=== PATIENT | female | born 2000 | race Caucasian/White ===

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

== ENCOUNTER 2021-01-31 12:08 | Emergency (ER) | payer OTHER, SELFPAY | END 2021-01-31 13:05 | disposition left against medical advice (07) | PROVIDERS: Emergency Provider Emergency Medicine Emergency Medical Services; PCP Internal Medicine | DX: J02.9 Acute pharyngitis, unspecified (principal) ==

== ENCOUNTER 2021-02-04 04:20 | Emergency (ER) | payer OTHER, SELFPAY ==
[2021-02-04 04:28] VITALS: BP 138/89; PULSE 79; RESP 18; TEMP 36.6; O2SAT 99; BMI 37.7
--- NOTE | 2021-02-04 05:05 | ED.GENADULT ---
HPI - General Adult General Chief complaint: Dyspnea Stated complaint: diff breathing Time Seen by Provider: 02/04/21 05:04 Source: patient Mode of arrival: ambulatory Limitations: no limitations History of Present Illness HPI narrative: 20-year-old female came in for evaluation of difficulty breathing. Patient woke up from sleep with difficulty breathing/ sore throat, patient been having sore throat and left ear pain for the last 3 days, in the emergency department the shortness of breath has resolved, patient has no recent history of traveling, no lower extremity swelling or edema, no chest pain, no history of DVT or PE. No history of sick contact. Related Data Previous Rx's Medication Instructions Recorded doxycycline hyclate 100 mg capsule 100 mg PO BID 10 Days #20 cap 06/18/20 amoxicillin 500 mg tablet 500 mg PO BID #14 tab 02/04/21 Allergies Allergy/AdvReac Type Severity Reaction Status Date / Time fish derived [fish] Allergy Shortness Verified 06/18/20 19:08 of Breath Review of Systems Review of Systems: all other systems are reviewed and are negative Constitutional: Reports as per HPI and Reports no additional constitutional complaints Eyes: Reports as per HPI and Reports no additional eye complaints Reports system reviewed and no additional complaints, except as documented Cardiovascular: Reports as per HPI and Reports no additional cardiovascular complaints Respiratory: Reports as per HPI and Reports no additional respiratory complaints Gastrointestinal: Reports as per HPI and Reports no additional gastrointestinal complaints Genitourinary: Reports no additional female genitourinary complaints Musculoskeletal: Reports no additional musculoskeletal complaints Skin/Breast: Reports system reviewed and no additional complaints, except as docu Psychiatric: Reports no additional psychiatric complaints Endocrine: Reports no additional endocrine complaints Hematologic/Lymphatic: Reports no additional hematologic/lymphatic complaints Allergic/Immunologic: Reports no additional allergic/immunologic complaints Reports system reviewed and no additional complaints, except as documented and Reports Abnormal speech present [facility] Past Medical History Medical History No known health problems Social History Social History Alcohol intake: never Advance Directives: No Advance Directives Information Provided: No Physical Exam Vital Signs: Vital Signs: Last Vital Signs Temp 97.9 F 02/04/21 04:28 Pulse 79 02/04/21 04:28 Resp 18 02/04/21 04:28 BP 138/89 11/23/21 04:28 Pulse Ox 99 02/04/21 04:28 Body Mass Index 37.7 vital signs have been reviewed as appeared to be correct. Blood pressure normal. Heart rate normal. Respiration rate normal. Temperature normal. Oxygen saturation normal. Appearance: Alert. Oriented X3. No acute distress. Head: Normal external exam. Normocephalic. Atraumatic. No Perera signs noted. No raccoon eyes noted Eyes: PERRLA. EOMI. Conjunctiva and sclera normal. Eyelids normal. ENT: left TM erythema. pharyngeal erythema with no exudate.. Uvula midline. Moist mucous membranes. No trismus noted. No drooling noted. No muffled voice noted. Neck: Normal inspection. Neck supple. FROM. No adenopathy. Thyroid Normal. No meningeal signs. No neck mass noted. CVS: Normal heart rate and rhythm. Heart sound normal. No murmurs noted. Pulses normal throughout. Respiratory: No respiratory distress. Painless inspiration. Breath sounds normal. No wheezes/rales/rhonchi noted. Chest nontender. No accessory muscle usage noted or decreased air movement noted. Abdomen: Soft and nontender. Bowel sounds normal in all 4 quadrants. No distention noted. No organomegaly noted. No visible injury noted. Back: No CVA tenderness. Full range of motion noted. Skin: Skin warm and dry. Normal skin color. Normal skin turgor. No rashes/lesions/lacerations noted. Extremities: No lower extremity edema. Extremities exhibit normal range of motion. Extremities nontender. Neuro: Oriented X 3. Cranial nerve exam: II-XII are grossly intact No motor deficit. No sensory deficit. Reflexes normal. Course Course Course Narrative: assessment and plan. 20-year-old female came in for left ear pain will start the patient on amoxicillin. Patient woke up from sleep with difficulty breathing and sore throat, in the ED patient has no difficulty breathing with normal vital signs, and patient has low risk for PE or DVT. Medical Decision Making Lab Data Lab results reviewed: Yes I reviewed the patient's lab results. Labs: Lab Results 02/04/21 02/04/21 Range/Units 04:54 04:54 COVID-19 (RICHADR) Negative (Negative) COVID-19 Clin Com See Note S. pyogenes GrpA SANDY Negative (Negative) Discharge Plan Discharge Clinical Impression: Otitis media Qualifiers: Chronicity: acute Laterality: left Patient Disposition: Home, Self-Care Instructions: Ear Infection (ED) Prescriptions: New amoxicillin 500 mg tablet 500 mg PO BID Qty: 14 RF: 0 No Action doxycycline hyclate 100 mg capsule 100 mg PO BID 10 Days Qty: 20 RF: 0 Referrals: Daivd Henry MD [Primary Care Provider] - 2 days
[2021-02-04 05:11] LABS: Strep A Nucleic Acid Negative (Negative)
[2021-02-04 05:16] LABS: COVID-19 Test Negative (Negative); IDNOW Serial# 9DD0AD1C
[2021-02-04] MEDS: Amoxicillin 500 MG CAPSULE PO (05:18)
[2021-02-04 06:00] VITALS: BP 123/60; PULSE 81; RESP 16; TEMP 37.1; O2SAT 98
== END 2021-02-04 06:09 | disposition home or self-care (01) ==
PROVIDERS: Emergency Provider Emergency Medicine; PCP Internal Medicine
DX: H66.92 Otitis media, unspecified, left ear (principal); R06.00 Dyspnea, unspecified; Z79.899 Other long term (current) drug therapy; Z20.822 Contact with and (suspected) exposure to COVID-19
CPT/HCPCS: 36415; 87635; 87651; 99283; 99284

== ENCOUNTER 2021-07-26 01:40 | Emergency (ER) | payer OTHER, SELFPAY ==
[2021-07-26 02:08] VITALS: BP 121/71; PULSE 106; RESP 20; TEMP 38.4; O2SAT 96; BMI 38.0
[2021-07-26] MEDS: Acetaminophen 325 MG TABLET 650 MG PO (02:24)
[2021-07-26 02:49] LABS: COVID-19 Test Negative (Negative); IDNOW Serial# 08D9AD1C; Influenza A Negative (Negative); Influenza B2 Negative (Negative)
== END 2021-07-26 06:08 | disposition left against medical advice (07) ==
PROVIDERS: Emergency Provider Emergency Medicine
DX: R05.9 Cough, unspecified (principal); R09.89 Other specified symptoms and signs involving the circulatory and respiratory systems; Z20.822 Contact with and (suspected) exposure to COVID-19
CPT/HCPCS: 87502; 87635; 99281; 99283

== ENCOUNTER 2022-12-03 09:00 | Emergency (ER) | payer OTHER, SELFPAY ==
[2022-12-03 09:04] VITALS: BP 150/92; PULSE 75; RESP 18; TEMP 36.6; O2SAT 98; BMI 40.3
--- NOTE | 2022-12-03 09:33 | ED_ITS ---
HPI - Back Pain/Injury General Chief Complaint: Back Pain/Injury Stated Complaint: pulled something in back Time Seen by Provider: 12/03/22 09:29 Source: patient Mode of arrival: ambulatory Limitations: no limitations History of Present Illness HPI Narrative: 22 yo female with history of obesity presents to the ER for evaluation of right lower back pain that started yesterday after doing some heavy lifting. She s tates the pain came on more severe when she went to go sit down in a low car. She felt a twinge in her right lower back and it has been stiff and sore since. It is worse with any movement or spinal rotation. Pain radiates to the right buttock. No leg weakness, numbness, tingling or issues with urination or moving her bowels. Minimal relief w/ tylenol. She reports her menstrual cycle is 10 days late and she wants to make sure she is not prior to taking any more medications for the pain. MD elicited complaint: back pain and back injury Onset (ago): day(s) (1) Timing: constant Severity: moderate Similar Symptoms Previously: No Quality: aching and spasming Location: right lower back Radiation: buttocks Exacerbating factors: movement Relieving factors: none Related Data Previous Rx's Medication Instructions Recorded doxycycline hyclate 100 mg capsule 100 mg PO BID stye 10 days #20 caps 06/18/20 amoxicillin 500 mg tablet 500 mg PO BID #14 tabs 02/04/21 cyclobenzaprine 10 mg tablet 10 mg PO TID PRN muscle spasm #10 12/03/22 tabs ibuprofen 600 mg tablet 600 mg PO Q8H PRN pain #10 tabs 12/03/22 Allergies Allergy/AdvReac Type Severity Reaction Status Date / Time bee pollen [bee stings] Allergy Hives Verified 12/03/22 09:04 fish derived [fish] Allergy Shortness Verified 12/03/22 09:04 of Breath Review of Systems Review of Systems: Yes all other systems are reviewed and are negative PMFSH Past Medical History Medical History No known health problems Social History Social History Alcohol intake: never Advance Directives: No Physical Exam Vital Signs: Vital Signs: Last Vital Signs Temp 98 F 12/03/22 09:04 Pulse 75 12/03/22 09:04 Resp 18 12/03/22 09:04 BP 150/92 H 12/03/22 09:04 Pulse Ox 98 12/03/22 09:04 O2 Del Method Room Air 12/03/22 09:04 BMI result Body Mass Index 40.3 Appearance: Alert. Oriented X3. No acute distress. HEENT: normal external inspection. Neck: Normal inspection. Neck supple. CVS: Normal heart rate and rhythm. Pulses normal. Respiratory: No respiratory distress. Breath sounds normal. Back: normal inspection. soft tissue tenderness of the right middle-low lumbar area and SI joint. pain with rotation to the left. limited spinal flexion due to pain. Skin: Skin warm and dry. Normal skin color. Normal skin turgor. No rashes. Extremities: No lower extremity edema. No joint swelling. Neuro/psych: Oriented X 3. Non-focal. Normal speech and cognition. Steady gait Medical Decision Making Medical Decision Making [facility] Narrative: 22 yo female presenting with right lower back pain after heavy lifting yesterday. No red flag symptoms of LBP. no urinary symptoms. late for her menses but Upreg negative. exam and clinical presentation most c/w muscle strain and spasm of the lumbar area will start nsaid and short course of muscle relaxer. lower back exercises discus sed. stable for d/c home. Differential Diagnosis Differential Diagnoses: The differential diagnosis associated with the presentation includes Inflammatory disorders, malignancy, trauma, osteoporosis, nerve root compression, radiculopathy, plexopathy, degenerative disc disease, disc herniation, spinal stenosis, sacroiliac joint dysfunction, facet joint injury, and less likely infection?like abscess or diskitis Lab Data [facility] Lab Attestation statement: I reviewed the patient's lab results. Labs: Lab Results 12/03/22 Range/Units 09:47 Urine Color Yellow Urine Appearance Clear Urine pH 5.5 (5.0-9.0) Ur Specific [place] 1.025 (1.005-1.025) Urine Protein Trace (Neg-Trace) mg/dL Urine Glucose (UA) Negative (Negative) mg/dL Urine Ketones Negative (Negative) mg/dL Urine Blood Moderate (2+) H (Negative) Urine Nitrite Negative (Negative) Ur Leukocyte Esterase Negative (Negative) Urine RBC 3-5 H (0-2) /HPF Urine WBC 0-5 (0-5) /HPF Ur Squamous Epith Cells 6-10 (0-2) /HPF Urine Bacteria 2+ (None Seen) Hyaline Casts 0-2 (0-2) /LPF Urine Test NEGATIVE (NEGATIVE) Tests considered The following testing was considered but not selected: considered lumbar spine x-ray but no trauma or point tenderness Prescription Management I considered prescription management with: Pain Medication Chronic Conditions Patient?s care impacted by: Other (obesity) Critical Care Time Critical Care Time Critical Care Time: No Discharge Plan Discharge Clinical Impression: Strain of lumbar region Qualifiers: Encounter type: initial encounter Qualified Code(s): S39.012A - Strain of muscle, fascia and tendon of lower back, initial encounter Patient Disposition: Home, Self-Care Instructions: Low Back Strain (ED), Lower Back Exercises (ED) Additional Instructions: Your urine test was negative for infection and . Your pain is most likely due to muscle strain and spasm. No bending, lifting or twisting. Use ice several times per day for 20 minutes at a time for the next 48 hours and then change to heat. Take medications as prescribed to help with pain and discomfort. Follow up with your Primary Care Doctor this week. If your pain worsens, if you develop new numbness, tingling, weakness, loss of function or incontinence call 911 or come back to the ER right away for evaluation. Prescriptions: New cyclobenzaprine 10 mg tablet 10 mg PO TID PRN (Reason: muscle spasm) Qty: 10 0RF ibuprofen 600 mg tablet 600 mg PO Q8H PRN (Reason: pain) Qty: 10 0RF No Action doxycycline hyclate 100 mg capsule 100 mg PO BID 10 Days Qty: 20 0RF amoxicillin 500 mg tablet 500 mg PO BID Qty: 14 0RF Stand Alone Forms: Work/School Release
[2022-12-03 09:55] LABS: Appearance Urine Clear; Color Urine Yellow; Glucose Urine UA Negative (Negative); Leukocyte Esterase Urine Negative (Negative); Nitrite Urine Negative (Negative); PH 5.5 (5.0-9.0); Specific Gravity - Urine 1.025 (1.005-1.025); UMIC TRIGGER UACC YES; Urine Blood Moderate (2+) (Negative); Urine Ketones Negative (Negative); Urine Protein Trace mg/dL (Neg-Trace)
[2022-12-03 09:56] LABS: UPreg QC Valid YES; Urine Pregnancy NEGATIVE (NEGATIVE)
[2022-12-03 10:09] LABS: Bacteria Urine 2+ (None Seen); Hyaline Casts Urine 0-2 /LPF (0-2); WBC Urine 0-5 /HPF (0-5)
== END 2022-12-03 10:32 | disposition home or self-care (01) ==
PROVIDERS: Physician Assistant; Emergency Provider Emergency Medicine
DX: S39.012A Strain of muscle, fascia and tendon of lower back, initial encounter (principal); X50.0XXA Overexertion from strenuous movement or load, initial encounter; Y93.9 Activity, unspecified; Y92.9 Unspecified place or not applicable; Y99.9 Unspecified external cause status
CPT/HCPCS: 81001; 81025; 99282; 99283

== ENCOUNTER 2023-01-11 02:16 | Emergency (ER) | payer OTHER, SELFPAY ==
[2023-01-11 02:26] VITALS: BP 139/65; PULSE 81; RESP 20; TEMP 36.3; O2SAT 98; BMI 39.5
--- NOTE | 2023-01-11 02:41 | ED.DENTAL ---
HPI - Dental/Oral General Chief complaint: Dental/Oral Stated complaint: oral pain Time Seen by Provider: 01/11/23 02:38 Source: patient Mode of arrival: ambulatory Limitations: no limitations History of Present Illness HPI Narrative: right jaw pain and cheek pain, patient noticed a bump in her mouth that is painful Onset (ago): hour(s) Duration: constant Severity: mild Related Data Previous Rx's Medication Instructions Recorded doxycycline hyclate 100 mg capsule 100 mg PO BID stye 10 days #20 caps 06/18/20 amoxicillin 500 mg tablet 500 mg PO BID #14 tabs 02/04/21 cyclobenzaprine 10 mg tablet 10 mg PO TID PRN muscle spasm #10 12/03/22 tabs ibuprofen 600 mg tablet 600 mg PO Q8H PRN pain #10 tabs 12/03/22 ibuprofen 600 mg tablet 600 mg PO Q6H PRN pain #30 tabs 01/11/23 Allergies Allergy/AdvReac Type Severity Reaction Status Date / Time bee pollen [bee stings] Allergy Hives Verified 12/03/22 09:04 fish derived [fish] Allergy Shortness Verified 12/03/22 09:04 of Breath Review of Systems Review of Systems: Yes all other systems are reviewed and are negative Neurologic: Denies Sensory deficit (Neuro) PMFSH Past Medical History Medical History No known health problems Social History Social History Alcohol intake: never Physical Exam Vital Signs: Vital Signs: Last Vital Signs Temp 97.3 F 01/11/23 02:26 Pulse 81 01/11/23 02:26 Resp 20 01/11/23 02:26 BP 139/65 01/11/23 02:26 Pulse Ox 98 01/11/23 02:26 O2 Del Method Room Air 01/11/23 02:26 BMI result Body Mass Index 39.5 Const: General: healthy appearing Nutritional Appearance: average body habitus Orientation/consciousness: oriented to person and patient oriented x3 Limitations: no limitations HEENT: Other: right parotid tenderness, pain to stensons duct, no pus coming out Head: Yes normal to inspection Ears: external ears normal General nose exam: Normal external nose present Throat: Yes posterior oropharynx normal Eyes: General: appearance normal, both eyes and all related structures Neck: Other: supple Neck: Yes normal visual inspection Chest: Chest palpation & inspection: normal inspection of the chest Resp: Auscultation: clear to auscultation bilaterally Cardio: Jugular venous distension: no JVD Rate: regular rate Rhythm: regular rhythm Heart sounds: S1 normal heart sound present and S2 normal heart sound present GI: Inspection: Yes normal to inspection Palpation (GI): Soft to palpation, nontender and No hepatosplenomegaly present Auscultation: normal bowel sounds : General: Yes no CVA tenderness Back/Spine/Pelvis: Back: no CVA tenderness Skin: General skin exam: no rashes or lesions noted Neuro: General: oriented to person and patient oriented x3 Cranial nerves: Yes CN's II-XII intact bilaterally Motor exam (neuro): 5/5 motor strength present throughout Sensory Exam: No Sensory deficit (Neuro) Extrem: General: Yes normal to inspection Psych: Appearance: grossly normal Course Reevaluation(s) Reevaluation #1: Patient with parotiditis with pain to stensons duct will dc home on NSAIDS and butterscotch candies Time: 02:44 Medical Decision Making Differential Diagnosis Differential Diagnoses: The differential diagnosis associated with the presentation includes (parotiditis, pharyngitis, dental infection, apthous ulcers) Tests considered The following testing was considered but not selected: rapid strep considered but patient with no exudates in throat Prescription Management I considered prescription management with: Antibiotic (patient with viral parotid inflammation no need for antibiotics at this time) Discharge Plan Discharge Clinical Impression: Acute parotitis Patient Disposition: Home, Self-Care Additional Instructions: take motrin as directed, drink plenty of fluids, suck on butterscotch candies to stimulate parotid gland Prescriptions: New ibuprofen 600 mg tablet 600 mg PO Q6H PRN (Reason: pain) Qty: 30 0RF No Action doxycycline hyclate 100 mg capsule 100 mg PO BID 10 Days Qty: 20 0RF amoxicillin 500 mg tablet 500 mg PO BID Qty: 14 0RF cyclobenzaprine 10 mg tablet 10 mg PO TID PRN (Reason: muscle spasm) Qty: 10 0RF ibuprofen 600 mg tablet 600 mg PO Q8H PRN (Reason: pain) Qty: 10 0RF Referrals: Physician,Unknown J [Primary Care Provider] - 5 days
== END 2023-01-11 03:05 | disposition home or self-care (01) ==
LOC: HO.ED 03:04
PROVIDERS: Emergency Provider Emergency Medicine
DX: K11.21 Acute sialoadenitis (principal); Z79.899 Other long term (current) drug therapy
CPT/HCPCS: 99282; 99283

== ENCOUNTER 2023-01-22 21:28 | Emergency (ER) | payer OTHER, SELFPAY ==
[2023-01-22 21:30] VITALS: BP 139/73; PULSE 71; RESP 16; TEMP 36.1; O2SAT 98; BMI 39.5
--- NOTE | 2023-01-22 22:32 | ED.EAR ---
HPI - Ear Problem General Chief complaint: Ear Problems Stated complaint: left ear pain Time Seen by Provider: 01/22/23 22:15 Source: patient Mode of arrival: ambulatory Limitations: no limitations History of Present Illness HPI Narrative: This is a 22-year-old female without significant medical history presenting to the emergency department for evaluation of left ear pain, sinus congestion for the past three days. patient reports ear pain has been worsening throughout the day describes it as a throbbing pain. Denies tinnitus, fevers, chills, cough, sore throat, nausea, vomiting, sick contacts, chest pain, shortness of breath. No recent travel or barotrauma. Related Data Previous Rx's Medication Instructions Recorded doxycycline hyclate 100 mg capsule 100 mg PO BID stye 10 days #20 caps 06/18/20 amoxicillin 500 mg tablet 500 mg PO BID #14 tabs 02/04/21 cyclobenzaprine 10 mg tablet 10 mg PO TID PRN muscle spasm #10 12/03/22 tabs ibuprofen 600 mg tablet 600 mg PO Q8H PRN pain #10 tabs 12/03/22 ibuprofen 600 mg tablet 600 mg PO Q6H PRN pain #30 tabs 01/11/23 amoxicillin 875 mg-potassium 1 tab PO BID 7 days #14 tabs 01/22/23 clavulanate 125 mg tablet Allergies Allergy/AdvReac Type Severity Reaction Status Date / Time bee pollen [bee stings] Allergy Hives Verified 12/03/22 09:04 fish derived [fish] Allergy Shortness Verified 12/03/22 09:04 of Breath Review of Systems Review of Systems: Constitutional : No Weight loss, No Fever, No Chills, No Fatigue, No Malaise ENT/Mouth : No sore throat, No Rhinorrhea + ear pain Eyes: No Eye Pain, No Swelling, No Redness Cardiovascular : No Chest Pain, No SOB, No Dyspnea on Exertion, No Orthopnea, No Edema, No Palpitations Respiratory : No Cough, No Sputum, No Wheezing Gastrointestinal : No Nausea, No Vomiting, No Diarrhea, No Constipation, No abdominal Pain, No Hematochezia, No Melena Genitourinary : No Dysuria, No Urinary Frequency, No Hematuria, Musculoskeletal : No joint pain, No Myalgias, No Joint Swelling Skin : No Skin Lesions, No rash Neuro : No Weakness, No Numbness, No Dizziness, No Headache Psych : No Anxiety/Panic, No Depression All other systems reviewed and are negative Yes all other systems are reviewed and are negative [facility] Past Medical History Attestation statement: The following information was validated with the patient. Source: old records reviewed and nursing notes reviewed Medical History No known health problems Social History Social History Alcohol intake: never Advance Directives: No Advance Directives Information Provided: Yes Physical Exam Vital Signs: Vital Signs: Last Vital Signs Temp 97.0 F 01/22/23 21:30 Pulse 71 01/22/23 21:30 Resp 16 01/22/23 21:30 BP 139/73 01/22/23 21:30 Pulse Ox 98 01/22/23 21:30 O2 Del Method Room Air 01/22/23 21:30 BMI result Body Mass Index 39.5 vss Appearance: Alert.? Oriented X3.? No acute distress.? Head: Normocephalic, atraumatic, no step-offs or deformities Eyes: Pupils equal, round and reactive to light.? ENT: Pharynx normal.? L ear canal with significant erythema, and red, bulging left tympanic membrane. Normal right ear canal and tympanic membrane. No mastoid tenderness bilaterally. No pain with manipulation of external ear bilaterally. Neck: Normal inspection.? Neck supple.? CVS: Normal heart rate and rhythm.? Pulses normal.? Respiratory: No respiratory distress.? Breath sounds normal.? Abdomen: Soft and nontender.? Skin: Skin warm and dry.? Normal skin color.? Normal skin turgor.? Extremities: 5/5 strength to bilateral upper and lower extremities Neuro: Oriented X 3.? No motor deficit.? No sensory deficit. CN 2-12 intact Medical Decision Making Medical Decision Making [facility] Narrative: 2232 22-year-old female presents with left-sided ear pain & sinus congestion x3 day. Physical exam L ear canal with significant erythema, and red, bulging left tympanic membrane. Normal right ear canal and tympanic membrane. No mastoid tenderness bilaterally. No pain with manipulation of external ear bilaterally. This is likely otitis media. Unlikely otitis externa, malignant otitis, mastoiditis. Possible sinusitis as well. Unlikely pneumonia, PE Plan at this time patient to be discharged home on Augmentin . Educated patient on diagnosis and treatment plan, answered all question, patient verbalizes understanding. At this time patient will be discharged home, advised to return with new or worsening symptoms. Educated on worrisome signs and symptoms and when to return. At this time I feel comfortable discharge home. Differential Diagnosis Differential Diagnoses: The differential diagnosis associated with the presentation includes This is likely otitis media. Unlikely otitis externa, malignant otitis, mastoiditis. Possible sinusitis as well. Unlikely pneumonia, PE Admission/Observation Consideration of admission/observation: Escalation of care including admission/observation considered Critical Care Time Critical Care Time Critical Care Time: No Discharge Plan Discharge Clinical Impression: Otitis media Patient Disposition: Home, Self-Care Instructions: Ear Infection (ED) Additional Instructions: Take your medications as prescribed. If you were prescribed antibiotics today, it is important that you take your medication to their entirety, do not skip any doses, do not finish them early. Follow-up with your primary care provider this week. Return to the emergency department with new or worsening symptoms. Such as fevers, chills, chest pain, shortness of breath, nausea, vomiting, dizziness, headache, vision changes, lethargy In case of emergency call 911 Prescriptions: New amoxicillin-pot clavulanate 875-125 mg tablet 1 tab PO BID 7 Days Qty: 14 0RF No Action doxycycline hyclate 100 mg capsule 100 mg PO BID 10 Days Qty: 20 0RF amoxicillin 500 mg tablet 500 mg PO BID Qty: 14 0RF cyclobenzaprine 10 mg tablet 10 mg PO TID PRN (Reason: muscle spasm) Qty: 10 0RF ibuprofen 600 mg tablet 600 mg PO Q8H PRN (Reason: pain) Qty: 10 0RF ibuprofen 600 mg tablet 600 mg PO Q6H PRN (Reason: pain) Qty: 30 0RF Referrals: Physician,Unknown J [Primary Care Provider] - 2 days Stand Alone Forms: Work/School Release
== END 2023-01-22 22:53 | disposition home or self-care (01) ==
PROVIDERS: Emergency Provider Emergency Medicine
DX: H66.92 Otitis media, unspecified, left ear (principal); R09.81 Nasal congestion; Z79.899 Other long term (current) drug therapy
CPT/HCPCS: 99282; 99283

== ENCOUNTER 2024-01-13 09:08 | Outpatient (AMB) | payer OTHER, SELFPAY ==
--- NOTE | 2024-01-13 09:52 | MHC.PC.OV ---
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 She was last seen in primary care about 2 years ago at another practice. She has a history of eczema since childhood. It started bothering her again 8 months ago. She has a job at [employer], and she has to wear gloves. She works 6 days a week. Eczema is on her hands usually. It is itchy and red. Sometimes she gets eczema on her elbows. She tried a friend's topical eczema cream which helps. Patient endorses a history of multiple miscarriages. Patient said she had an early miscarriage in October of 2021 and another in November of 2022. Patient says the 1st miscarriage happened 10 days after her missed period. The 2nd occurred approximately 4 weeks after a missed period. She has a family history of miscarriages. Patient has not seen gynecology ever. She is not actively trying to conceive, but her and her partner would welcome a and are not trying to prevent it. The patient has a regular menstrual cycle lasting 31 or 32 days with a 6 day menstrual period. Denies family history of thyroid disease. She feels tired frequently. The patient had a heart murmur when she was younger. She recalls seeing Cardiology. Patient says she grew out of the murmur. No family history of heart disease. Denies chest pain or shortness of breath. ROS: Constitutional: No unexplained weight loss, fever, chills, fatigue or night sweats. Respiratory: No shortness of breath Cardiovascular: No chest pain, chest pressure or chest discomfort. No palpitations or pedal edema. Skin: see HPI Endocrine: No cold or heat intolerance. No polyuria or polydipsia. Physical exam: Constitutional: Alert, in no distress. Neck: Supple, Full range of motion. No lymphadenopathy. No palpable thyroid masses. Respiratory: Clear to auscultation. Cardiovascular: S1 S2 regular. No murmurs. Psychiatric: Normal mood and affect Skin: Erythematous, dry and scaly patches on the back of her hands consistent with eczema. 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 1. Little interest or pleasure in doing things: several days 2. Feeling down, depressed, or hopeless: more than half the days 3. Trouble falling or staying asleep, or sleeping too much: more than half the days 4. Feeling tired or having little energy: more than half the days 5. Poor appetite or overeating: more than half the days 6. Feeling bad about yourself - or that you are a failure or have let yourself or your family down: nearly every day 7. Trouble concentrating on things, such as reading the newspaper or watching television: not at all 8. Moving or speaking so slowly that other people could have noticed. Or the opposite - being so fidgety or restless that you have been moving around a lot more than usual: not at all 9. Thoughts that you would be better off or of hurting yourself in some way: not at all Total score: 12 Source: Developed by Drs. Saúl Bates, Oliva Bosch, Vance Broderick and colleagues, with an educational christopher from [employer]. Thrive Questionnaire Date Thrive assessed: 01/06/24 I am a: Patient What is your living situation today?: I choose not to answer this question Within the past 12 months, did the food you bought not last and you didn't have the money to get more?: Sometimes True Within the past 12 months, did you worry whether your food would run out before you got money to buy more?: Sometimes True Do you have trouble paying for medicines?: No Do you have trouble getting transportation to medical appointments?: No Do you have trouble paying your heating and electricity bill?: No Do you have trouble taking care of your child, family member or friend?: No Do you have trouble with day-to-day activities such as bathing, preparing meals, shopping, managing finances, etc.?: No Are you currently unemployed and looking for a job?: No Are you interested in more education?: Yes Please select the resources that you would like help with: Housing/Snf, Food and Education Currently or been in a relationship where the following occur: I choose not to answer THRIVE Score: 2 AUDIT C Alcohol Use Questionnaire (AUDIT-C) 1. How often do you have a drink containing alcohol?: Never 2. How many drinks containing alcohol do you have on a typical day when you are drinking?: 1 or 2 3. How often do you have six or more drinks on one occasion?: Never Total Score: 0 ABELARDO-7 AMB Questionnaire ABELARDO-7 Feeling nervous, anxious, or on edge: 1 = Several days Not being able to stop or control worryin = Several days Worrying too much about different things: 1 = Several days Trouble relaxin = Several days Being so restless that it is hard to sit still: 2 = More than half the days Becoming easily annoyed or irritable: 3 = Nearly every day Feeling afraid as if something awful might happen: 1 = Several days Total ABELARDO-7 score (0-4 normal; 5-9 mild; 10-14 moderate; 15-21 severe): 10 Source: Developed by Drs. Saúl Bates, Oliva Bosch, Vance Broderick and colleagues, with an educational christopher from [employer]. Physical exam (Primary Care) Vital Signs: Last Vital Signs Temp 98.4 F 01/13/24 09:58 Pulse 57 01/13/24 09:58 Resp 16 01/13/24 09:58 BP 108/86 01/13/24 09:58 Pulse Ox 97 01/13/24 09:58 Oxygen Delivery Method Room Air 01/13/24 09:58 BMI result Body Mass Index 43.0 Tobacco/Smoking Status: Tobacco use Status Tobacco use date assessed 01/13/24 01/13/24 10:00 Patient Tobacco Use Status Never used Tobacco 01/13/24 10:00 e-Cigarette/Vaping Use Never Used 01/13/24 10:00 PHQ-9: PHQ-9 Score PHQ-9: Total score 12 01/13/24 10:00 Thrive Assessment: Date of Thrive Assessment Date Thrive assessed 01/06/24 01/13/24 10:00 Currently or been in a relationship where the following occur: I choose not to answer Coding Level of Care Code New Pt Level 4 (12558) Complex EM visit Add On G2211 Diagnoses Intrinsic eczema L20.84 Eczema type: intrinsic History of multiple miscarriages N96 Assessment & Plan Assessment & Plan (1) Eczema: Code(s): L30.9 - Dermatitis, unspecified Category: Medical Qualifiers: Eczema type: intrinsic Qualified Code(s): L20.84 - Intrinsic (allergic) eczema Plan: Reviewed preventative measures with the patient including using thin cotton liner gloves when she has to use vinyl gloves at work. Wash hands with lukewarm water after shift and pat dry. Apply moisturizer like CeraVe, Vanicream or Vaseline throughout the day. Prescribed Westcort to apply twice daily for 7 days for eczema flares. Reviewed side effects of topical steroids including atrophy and skin discoloration. Reassess at follow up appointment. (2) History of multiple miscarriages: Code(s): N96 - Recurrent loss Category: Medical Plan: Check labs including TSH and vitamin-D. Referred to OBGYN and reproductive endocrinology. Plan Follow up in 4-6 weeks for annual physical exam and recheck eczema. She will have fasting labs completed. Orders: Orders Comprehensive Met. 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 Referral N96 - Recurrent loss, Z01.419 - Encounter for gynecological examination (general) (routine) without abnormal findings Reproductive Endocrinology N96 - Recurrent loss Medications: New hydrocortisone valerate 0.2% 1 appl topical BID 7 days PRN 60 grams 0RF eczma Discontinued doxycycline hyclate Discontinued Reason: Doctor's Order 100 mg PO BID 10 days 20 caps 0RF stye amoxicillin Discontinued Reason: Doctor's Order 500 mg PO BID 14 tabs 0RF ibuprofen Discontinued Reason: Doctor's Order 600 mg PO Q6H PRN 30 tabs 0RF pain amoxicillin-pot clavulanate 875-125 mg Discontinued Reason: Doctor's Order 1 tab PO BID 7 days 14 tabs 0RF cyclobenzaprine Discontinued Reason: Doctor's Order 10 mg PO TID PRN 10 tabs 0RF muscle spasm
[2024-01-13 09:58] VITALS: BP 108/86; PULSE 57; RESP 16; TEMP 36.9; O2SAT 97; BMI 43.0
== END 2024-01-13 10:22 | disposition home or self-care (01) ==
LOC: HO.HMCFM 09:08
PROVIDERS: PCP Physician Assistant Medical; Visit Provider Physician Assistant Medical
DX: L20.84 Intrinsic (allergic) eczema (principal); N96 Recurrent pregnancy loss

== ENCOUNTER → 2024-01-13 09:08 | Outpatient (BNVA) | payer OTHER, SELFPAY | PROVIDERS: PCP Physician Assistant Medical; Visit Provider Physician Assistant Medical | DX: N96 Recurrent pregnancy loss (principal); L20.84 Intrinsic (allergic) eczema | CPT/HCPCS: 96127; 99202 ==

== ENCOUNTER 2024-02-09 11:05 | Outpatient (REF) | payer OTHER, SELFPAY ==
[2024-02-09 14:24] LABS: Hematocrit 39.5 % (37.0-47.0); Hemoglobin 13.5 g/dl (12.0-16.0); Mean Corpuscular HGB Conc 34.2 g/dl (31.0-35.0); Mean Corpuscular Hemoglobin 28.1 pg (27.0-33.0); Mean Corpuscular Volume 82.1 fL (80.0-98.0); Mean Platelet Volume 11.3 fL (9.4-12.3); Platelet Count 265 X10*3/uL (160-400); Red Blood Count 4.81 X10*6/uL (4.20-5.50); White Blood Count 8.2 X10*3/uL (4.8-10.8)
[2024-02-09 14:48] LABS: Albumin Level 4.3 g/dL (3.5-5.0); Alkaline Phosphatase 62 U/L (39-117); Anion Gap 13 (12-20); Aspartate Amino Transferase 39 U/L (5-31); Bilirubin Total 0.4 mg/dL (0.0-1.0); Blood Urea Nitrogen 10 mg/dL (9-16); Calcium 9.1 mg/dL (8.4-10.2); Carbon Dioxide 26 mmol/L (22-29); Chloride 109 mmol/L (96-108); Cholesterol 147 mg/dL (<200); Estimated Glomerular Filt Rate > 60; Glucose Random 130 mg/dL (60-115); HDL Cholesterol 33 mg/dL (>40); LDL Cholesterol Calculated 59 mg/dL (<100); Potassium 3.9 mmol/L (3.3-5.1); Sodium 144 mmol/L (135-145); Triglycerides 277 mg/dL (<150)
[2024-02-09 14:53] LABS: Alanine Aminotransferase 46 U/L (0-31)
[2024-02-09 15:06] LABS: TSH reflex Free T4 1.26 uIU/mL (0.32-4.0)
[2024-02-14 20:48] LABS: VITAMIN D (1,25 OH) D3 46 pg/mL; Vit D (1,25-Dihydroxy) Total 46 pg/mL (18-72); Vitamin D (1,25 OH) D2 <8 pg/mL
== END 2024-02-09 11:06 | disposition home or self-care (01) ==
LOC: HO.WFDLDS 11:05
PROVIDERS: Visit Provider Physician Assistant Medical
DX: N96 Recurrent pregnancy loss (principal); E78.5 Hyperlipidemia, unspecified; Z13.6 Encounter for screening for cardiovascular disorders
CPT/HCPCS: 36415; 80053; 80061; 82652; 84443; 85027

== ENCOUNTER 2024-02-21 16:20 | Outpatient (AMB) | payer OTHER, SELFPAY ==
--- NOTE | 2024-02-21 16:25 | MHC.PC.OV ---
Vital Signs 02/21/24 16:28 Height 5 ft 6.34 in Weight 272 lb 6 oz BMI 43.5 BP 120/74 Blood Pressure Location Lt brachial Position Sitting Pulse 74 Pulse Source Pulse Oximeter Pulse Oximetry (%) 98 Oxygen Delivery Method Room Air Intake Visit Reasons: annual physical Intake Note: Physical. Blood work results. Author Agent Required: No Allergies bee pollen [bee stings] Allergy (Verified 02/21/24 16:26) Hives fish derived [fish] Allergy (Verified 02/21/24 16:26) Shortness of Breath Tobacco use date assessed: 01/13/24 Dental Screening Dental Screen Date: 01/13/24 HPI HPI Comments History of Present Illness Details This is a 23-year-old female presenting for her physical exam. We reviewed her lab work. CBC, renal function, vitamin-D level and TSH level are normal. Patient's fasting glucose level was 130. Patient says she did have a coffee with almond milk the morning before the lab work. AST and ALT are elevated at 39 and 46 respectively. She drinks alcohol rarely. She denies GI symptoms. Patient said she had taken some Tylenol or ibuprofen that week because she was on her menstrual period. Her triglycerides are elevated at 277. LDL cholesterol is 59. HDL is low at 33. She does want to work on weight loss. She is frustrated because she finds that even when she tries to follow a healthy diet she does not lose weight. TSH is normal. The patient had referrals placed to OBGYN and reproductive endocrinology. She did not hear about them though I can see in the chart they were process. I gave her the contact number so she can schedule appointments. Eczema is controlled with emollients and topical triamcinolone. ROS: Constitutional: No unexplained weight loss, fever, chills, fatigue or night sweats. Eyes: No vision changes, blurry vision, double vision, eye pain, eye redness, eye discharge. ENT: No hearing loss, sneezing, congestion, runny nose or sore throat. Respiratory: No shortness of breath, cough or sputum production. Cardiovascular: No chest pain, chest pressure or chest discomfort. No palpitations or pedal edema. Gastrointestinal: No anorexia, nausea, vomiting or diarrhea. No abdominal pain or blood in stool. Genitourinary: No dysuria, hematuria, urinary frequency. Neurologic: No headache, dizziness, syncope, unilateral weakness, ataxia, numbness or tingling in the extremities. Musculoskeletal: No muscle pain, back pain, joint pain or swelling. Hematologic/Lymphatics: No bleeding or bruising. No painful lymph nodes. Skin: See HPI. Endocrine: No cold or heat intolerance. No polyuria or polydipsia. Psychiatric: No depression or anxiety. No SI/HI. Physical exam: Constitutional: Alert, in no distress. Head: Normocephalic. Eyes: Pupils are equal, round and reactive to light. Extraocular muscles intact. Ear, Nose and Throat: Canals clear. TMs normal. Normal nasal mucosa. No nasal discharge. No oral lesions. Neck: Supple, Full range of motion. No lymphadenopathy. No palpable thyroid masses. Respiratory: Clear to auscultation. Cardiovascular: S1 S2 regular. No murmurs. Gastrointestinal: Abdomen soft, non-tender, non-distended. Normal bowel sounds. No palpable masses. Neurologic: No focal neurological deficits. Symmetric patellar reflexes. Moves all extremities spontaneously. Sensation intact bilaterally. Skin: Mild hyperpigmentation on the back of the left hand but no erythema, scaling or eczematous rash today. Musculoskeletal: No gross deformities. Normal range of motion. Extremities: Warm and well perfused. No clubbing, cyanosis or edema. Psychiatric: Normal mood and affect [facility] Medical History (Updated 02/22/24 @ 10:01 by ADELSO Renee) Obesity, class 3 Routine physical examination Dyslipidemia IFG (impaired fasting glucose) Elevated LFTs Eczema History of multiple miscarriages Heart murmur No known health problems Family History Mother Alcoholism Father Alcoholism Other FH: mental illness Substance abuse Social History (Updated 02/21/24 @ 16:27 by Yarelis Valles CMA) Housing: Apartment Alcohol intake: former Patient Tobacco Use Status: Never used Tobacco e-Cigarette/Vaping Use: Never Used Second Hand Smoke Exposure: Yes service: No Current occupational status: employed 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 [employer] Current occupational exposures/hazards: No Cognitive needs: No Hearing needs: No Vision needs: Yes (glasses) Questionnaire Thrive Questionnaire Date Thrive assessed: 01/06/24 I am a: Patient What is your living situation today?: I choose not to answer this question Within the past 12 months, did the food you bought not last and you didn't have the money to get more?: Sometimes True Within the past 12 months, did you worry whether your food would run out before you got money to buy more?: Sometimes True Do you have trouble paying for medicines?: No Do you have trouble getting transportation to medical appointments?: No Do you have trouble paying your heating and electricity bill?: No Do you have trouble taking care of your child, family member or friend?: No Do you have trouble with day-to-day activities such as bathing, preparing meals, shopping, managing finances, etc.?: No Are you currently unemployed and looking for a job?: No Are you interested in more education?: Yes Currently or been in a relationship where the following occur: I choose not to answer THRIVE Score: 2 Physical exam (Primary Care) Vital Signs: Last Vital Signs Pulse 74 02/21/24 16:28 BP 120/74 02/21/24 16:28 Pulse Ox 98 02/21/24 16:28 Oxygen Delivery Method Room Air 02/21/24 16:28 BMI result Body Mass Index 43.5 Tobacco/Smoking Status: Tobacco use Status Tobacco use date assessed 01/13/24 02/21/24 16:26 Patient Tobacco Use Status Never used Tobacco 02/21/24 16:27 e-Cigarette/Vaping Use Never Used 02/21/24 16:27 Thrive Assessment: Date of Thrive Assessment Date Thrive assessed 01/06/24 02/21/24 16:26 Currently or been in a relationship where the following occur: I choose not to answer Coding Level of Care Code Est Pt Level 3 (69428) Est Pt Prev Care 18-39y(10926) Diagnoses Routine physical examination Z00.00 Dyslipidemia E78.5 IFG (impaired fasting glucose) R73.01 Elevated LFTs R79.89 Obesity, class 3 E66.813 Assessment & Plan Assessment & Plan (1) Routine physical examination: Code(s): Z00.00 - Encounter for general adult medical examination without abnormal findings Category: Medical (2) Dyslipidemia: Code(s): E78.5 - Hyperlipidemia, unspecified Category: Medical (3) IFG (impaired fasting glucose): Code(s): R73.01 - Impaired fasting glucose Category: Medical (4) Elevated LFTs: Code(s): R79.89 - Other specified abnormal findings of blood chemistry Category: Medical (5) Obesity, class 3: Code(s): E66.813 - Obesity, class 3 Category: Medical Plan Patient is seen today for a routine physical. As part of this visit we reviewed the following issues, which are considered and essential part of preventative health in this age group: - Breast Cancer screening - Annual Film Processing Shift Supervisor exam - Blood pressure screening - Cholesterol screening - Osteoporosis prevention including calcium/vitamin D intake, weight bearing exercise & smoking cessation - Nutritional and exercise counseling - Counseling of injury prevention including fire prevention, smoke alarms and seat belt usage - Screening for depression - Prevention of and/or testing for infectious diseases - Education about skin cancer - Recommendations about immunizations - Recommendation of an eye exam - Screening for substance abuse Patient will return to the lab in 4 weeks to recheck liver profile, screen for hepatitis AB and C, and I will have the office fax order for liver ultrasound with elastography to [facility] for evaluation of possible hepatic steatosis. Advised patient to avoid alcohol and [id number] pain medications if at all possible. Check hemoglobin A1c when she returns for labs. She did have almond milk prior to her recent blood work which may have caused some elevation in her blood sugar. We discussed lifestyle modifications including low carbohydrate low sugar diet in regards to her blood sugar and elevated triglyceride level. We will recheck triglyceride level fasting. We discussed lifestyle modifications. Patient denies contraindications to GLP 1. She would like to try the medication. We will submit Zepbound to see if insurance covers it. Titration schedule reviewed with the patient. Side effects reviewed in detail with the patient. [employer] Plus (handout given) Reminders: Watch all video tutorials, read all text messages and click on any features hidden messages to understand the scott better. Accurately enter your weight in pounds and height in feet and inches. Accurately?select what time you wake up and sleep and be careful to select am/pm properly. Save your username and password somewhere. The scott meets all HIPAA requirements. You must select shakes or bars or both and in the following?pages a specific brand. If you don't select a brand, the plan won't be accurate. You can use a regular?scale but buying the $23 Praedicat scale from [employer] is recommended. For any issues you can hit technical support. If you take anti-diabetic and/or anti-hypertensive medications you must monitor blood sugars and blood pressure and alert the office if blood sugars are below 90 and blood pressures are below 110/60 so we can adjust medications if appropriate. The scott will send you automatic?reminders to do that if you enter in the scott that you have diabetes and/or hypertension and take medications for these conditions. Follow up in 5-6 weeks to review lab results and weight assessment. Orders: Orders Aspartate Amino Transferase 4 Weeks R7.89 - Other specified abnormal findings of blood chemistry Hepatitis A,B,C Profile 4 Weeks R7. - Other specified abnormal findings of blood chemistry Hemoglobin A1c 4 Weeks R73.01 - Impaired fasting glucose, R7.89 - Other specified abnormal findings of blood chemistry US abdomen hernandez w elastography 02/21/24 E78.5 - Hyperlipidemia, unspecified, R73.01 - Impaired fasting glucose, R79.89 - Other specified abnormal findings of blood chemistry Alanine Aminotransferase 4 Weeks R7. - Other specified abnormal findings of blood chemistry Hepatitis A IgM 4 Weeks R79.89 - Other specified abnormal findings of blood chemistry Triglycerides 02/21/24 E78.5 - Hyperlipidemia, unspecified Medications: New tirzepatide (weight loss) (Zepbound) 2.5 mg (0.5 mL) subcut QWEEK 2 mL 0RF 4 weeks Patient Instructions: Please contact the office if you don't hear about the Zepbound prescription from the pharmacy after 2 weeks. If you receive the prescription please contact me after you take the 3rd dose that month to let me know if you want me to prescribe the next dose up. Please have fasting labs done in 4 weeks.
[2024-02-21 16:28] VITALS: BP 120/74; PULSE 74; O2SAT 98; BMI 43.5
== END 2024-02-21 17:06 | disposition home or self-care (01) ==
PROVIDERS: PCP Physician Assistant Medical; Visit Provider Physician Assistant Medical
DX: Z00.00 Encounter for general adult medical examination without abnormal findings (principal); E78.5 Hyperlipidemia, unspecified; R73.01 Impaired fasting glucose; E66.813 Obesity, class 3; Z68.41 Body mass index [BMI] 40.0-44.9, adult

== ENCOUNTER → 2024-02-21 16:20 | Outpatient (BNVA) | payer OTHER, SELFPAY | PROVIDERS: PCP Physician Assistant Medical; Visit Provider Physician Assistant Medical | DX: Z00.00 Encounter for general adult medical examination without abnormal findings (principal); E78.5 Hyperlipidemia, unspecified; R73.01 Impaired fasting glucose; R79.89 Other specified abnormal findings of blood chemistry; E66.813 Obesity, class 3 | CPT/HCPCS: 99212; 99395 ==

== ENCOUNTER 2024-03-22 08:33 | Outpatient (REF) | payer OTHER, SELFPAY ==
--- NOTE | ~2024-03-22 | US_ITS ---
EXAMINATION: US ABDOMEN LIMITED WITH LIVER ELASTOGRAPHY HISTORY: R79.89 - Other specified abnormal findings of blood chemistry TECHNIQUE: Real-time grayscale ultrasound imaging of the abdomen was performed and images were reviewed. COMPARISON: There are no prior studies for comparison. FINDINGS: Liver: The liver is normal in size, but demonstrates increased echotexture, consistent with steatosis. No focal mass or intrahepatic biliary ductal dilatation is identified. There is normal hepatopedal flow in the portal vein. Ultrasound elastography of the liver was performed with 10 separate measurements of the liver parenchyma with the patient in the supine position. Measurements were obtained approximately 2 cm below Marya's capsule and perpendicular to the capsule. Images are of satisfactory quality. The median shear wave velocity is 1.36 m/s. The interquartile range/median (IQR/median) is 0.14. Gallbladder and biliary tree: The gallbladder is unremarkable, without evidence of calculi, wall thickening, or pericholecystic fluid. There is no sonographic Soto sign. The common bile duct is normal in caliber measuring 4 mm. Kidneys: The right kidney measures 10.6 cm in length. The right kidney is unremarkable, without evidence of masses, hydronephrosis, or calculi. Pancreas: The pancreatic head, neck, and body are unremarkable. The pancreatic tail is obscured by bowel gas. Abdominal aorta and inferior vena cava: The visualized portions of the abdominal aorta and inferior vena cava are normal in caliber. There is no free fluid in the abdomen. US/US abdomen hernandez w elastography IMPRESSION: Hepatic steatosis. The median shear wave velocity is 1.36 m/s, corresponding to a median liver stiffness of 5.54 kPa. The IQR/median value is 0.14. This is reliable as the value is < 0.15 (15%). Findings are indicative of a low elastography value which rules out advanced chronic liver disease in asymptomatic patients. REFERENCE: Society of Radiologists in Ultrasound Liver Stiffness Thresholds (2020): LIVER STIFFNESS THRESHOLDS: *Shear wave velocity less than 1.3 m/s (Liver Stiffness equal or less than 5 kPa): High probability of being normal. *Shear wave velocity less than 1.7 m/s (Liver Stiffness less than 9 kPa): In the absence of other known clinical signs, rules out compensated advanced chronic liver disease. *Shear wave velocity between 1.7-2.1 m/s (Liver Stiffness 9-13 kPa): Suggestive of compensated advanced chronic liver disease but need further test for confirmation. *Shear wave velocity between 2.1-2.4 m/s (Liver Stiffness 13-17 kPa): Rules in compensated advanced chronic liver disease. *Shear wave velocity greater than 2.4 m/s (Liver Stiffness over 17 kPa): Suggestive of clinically significant portal hypertension. QUALITY OF DATA SET: *IQR/Median value equal or less than 0.15 implies a quality data set. *IQR/Median value over 0.15 implies a poor quality data set. SIGNIFICANT CHANGE FROM PRIOR EXAM: Significant change if liver stiffness measurement is 10% or greater from prior exam. OTHER CONSIDERATIONS: The stage of liver fibrosis may be overestimated in the setting of acute hepatitis, liver inflammation, elevated liver function tests, hepatic vascular congestion, obstructive cholestasis, non-fasting state, and infiltrative diseases such as amyloidosis and lymphoma. In some patients with NAFLD, the liver stiffness thresholds for compensated advanced chronic liver disease may be lower. In causes other than viral hepatitis and NAFLD, liver stiffness thresholds are not well established. Electronically signed by: Saúl Krishnamurthy MD 03/23/2024 02:19 PM [facility] [place]
== END 2024-03-22 08:34 | disposition home or self-care (01) ==
LOC: HO.US 08:33
PROVIDERS: PCP Physician Assistant Medical; Visit Provider Physician Assistant Medical
DX: R79.89 Other specified abnormal findings of blood chemistry (principal); R73.01 Impaired fasting glucose; E78.5 Hyperlipidemia, unspecified
CPT/HCPCS: 76705; 76981

== ENCOUNTER → 2024-03-22 08:39 | Outpatient (BNV) | payer OTHER, SELFPAY | PROVIDERS: PCP Physician Assistant Medical; Visit Provider Radiology Diagnostic Radiology | DX: K76.0 Fatty (change of) liver, not elsewhere classified (principal) | CPT/HCPCS: 76705; 76981 ==

== ENCOUNTER 2024-03-24 09:37 | Outpatient (REF) | payer OTHER, SELFPAY ==
[2024-03-24 11:59] LABS: Estimated Average Glucose 117 mg/dL; Hemoglobin A1C 135.1873 umol/L; Hemoglobin A1c % 5.7 % (<6.0); Total Hemoglobin (HGBA1C) 3528.9693 umol/L
[2024-03-24 11:59] LABS: Alanine Aminotransferase 42 U/L (0-31); Aspartate Amino Transferase 37 U/L (5-31); Triglycerides 106 mg/dL (<150)
[2024-03-24 12:25] LABS: Hepatitis A Antibody IgM 0.19 Index (0-0.79); ~Hepatitis A Antibody IgM Nonreactive (Nonreactive)
[2024-03-24 12:34] LABS: HBc Num1 0.14 S/CO (0.00-0.79); HBsAGNum1 0.42 S/CO (0.00-0.99); Hepatitis B Core Antibody Nonreactive (Nonreactive); Hepatitis B Surface Antigen Negative (Negative); ~HepC Num1 0.07 S/CO (0.00-0.79); ~Hepatitis A Antibody IgM Nonreactive (Nonreactive); ~Hepatitis B Surface Antibody NONREACTIVE (Nonreactive); ~Hepatitis C Antibody Nonreactive (Nonreactive)
== END 2024-03-24 09:38 | disposition home or self-care (01) ==
LOC: HO.WFDLDS 09:37
PROVIDERS: Visit Provider Physician Assistant Medical
DX: R79.89 Other specified abnormal findings of blood chemistry (principal); R73.01 Impaired fasting glucose; E78.5 Hyperlipidemia, unspecified; Z11.59 Encounter for screening for other viral diseases; Z72.89 Other problems related to lifestyle
CPT/HCPCS: 36415; 83036; 84450; 84460; 84478; 86704; 86706; 86709; 86803; 87340

== ENCOUNTER 2024-08-10 14:28 | Outpatient (AMB) | payer OTHER, SELFPAY ==
[2024-08-10 14:36] VITALS: BP 112/76; PULSE 90; TEMP 37; O2SAT 96; BMI 39.9
--- NOTE | 2024-08-10 14:36 | AM.OFFWIN_ITS ---
Intake Vital Signs 08/10/24 14:36 Height 5 ft 6 in Weight 247 lb 6 oz BMI 39.9 BP 112/76 Blood Pressure Location Lt brachial Position Sitting Pulse 90 Pulse Source Pulse Oximeter Temp 98.6 F Temp Source Oral Pulse Oximetry (%) 96 Oxygen Delivery Method Room Air Intake Visit Reasons: EP Strep? Patient Tobacco Use Status: Never used Tobacco Allergies bee pollen [bee stings] Allergy (Verified 08/10/24 14:37) Hives fish derived [fish] Allergy (Verified 08/10/24 14:37) Shortness of Breath Do you need a note to return to daycare/school/sports/work: Yes HPI HPI Comments History of Present Illness Details This is a 23-year-old female with no stated past medical history presenting for evaluation of a sore throat that started last night at approximately 9:00 p.m.. Patient has been drinking tea and taking NyQuil and Robitussin for her symptoms. Patient states that her sore throat was worse this morning. She denies having any fevers, chills, ear pain or shortness of breath but does report a mild cough. [facility] Medical History (Updated 08/10/24 @ 14:56 by Jodi Rodriguez PA-C) Hepatic steatosis Prediabetes Obesity, class 3 Routine physical examination Dyslipidemia IFG (impaired fasting glucose) Elevated LFTs Eczema History of multiple miscarriages Heart murmur No known health problems Family History Mother Alcoholism Father Alcoholism Other FH: mental illness Substance abuse Social History (Updated 02/21/24 @ 16:27 by Yarelis Valles CMA) Housing: Apartment Alcohol intake: former Patient Tobacco Use Status: Never used Tobacco e-Cigarette/Vaping Use: Never Used Second Hand Smoke Exposure: Yes service: No Current occupational status: employed Current occupation: [employer] and [employer] at a [employer] Current occupational exposures/hazards: No Cognitive needs: No Hearing needs: No Vision needs: Yes (glasses) Review of Systems Const All systems reviewed & are unremarkable except as noted in HPI and below Reports as per HPI and Denies headache(s) Eyes Reports no additional complaints ENT Denies otalgia, Denies headache(s), Denies sinus pain, Denies sinus pressure, Reports sore throat and Denies throat swelling Card Reports no additional complaints and Denies dyspnea Resp Reports cough, Denies dyspnea and Denies wheezing GI Reports no additional complaints and Denies nausea Reports no additional complaints Musc Reports no additional complaints Skin/Breast Reports system reviewed and no additional complaints, except as documented Neuro Reports no additional complaints and Denies headache(s) Psych Reports no additional complaints Endo Reports no additional complaints Bruce/Lymph Reports no additional complaints Aller/Immun Reports no additional complaints, Denies throat swelling and Denies wheezing Physical Exam Vital Signs: Last Vital Signs Temp 98.6 F 08/10/24 14:36 Pulse 90 08/10/24 14:36 BP 112/76 08/10/24 14:36 Pulse Ox 96 08/10/24 14:36 Oxygen Delivery Method Room Air 08/10/24 14:36 BMI result Body Mass Index 39.9 Const General: cooperative, healthy appearing, comfortable, no acute distress, well developed, alert and awake Nutritional Appearance: well nourished Orientation/consciousness: patient oriented x3 Limitations: no limitations HEENT Head: Yes normal to inspection and Yes normocephalic Ears: hearing grossly normal bilaterally, external ears normal, TM's abnormal bilaterally (TMs bulging bilaterally L > R, no erythema) and EAC's normal General nose exam: Normal external nose present Face and sinus: Yes normal facial exam Mouth: Normal oral and palatal mucosa present and moist mucous membranes Throat: Yes posterior oropharynx normal ( There is no edema, erythema or exudates of the posterior oropharynx) Eyes General: appearance normal, both eyes and all related structures Neck Lymphatic: no lymphadenopathy noted Resp Effort & Inspection: normal respiratory effort and not tachypneic Auscultation: clear to auscultation bilaterally and no wheezes Cardio Rate: regular rate Rhythm: regular rhythm Neuro General: patient oriented x3 Psych Appearance: grossly normal Mental Status: mental status grossly normal Insight: Good insight present (Psych) Judgement: Good judgement present (Psych) Results Reviewed Results Reviewed: Rapid strep test is negative Assessment & Plan Assessment & Plan (1) Pharyngitis: Comment: patient's rapid strep test is negative. Patient will be discharged home and instructed to use ibuprofen and/or antihistamines for management of her discomfort. Code(s): J02.9 - Acute pharyngitis, unspecified Qualifiers: Pharyngitis/tonsillitis etiology: unspecified etiology Qualified Code(s): J02.9 - Acute pharyngitis, unspecified Plan: Ibuprofen 600 mg q.6 hours, diphenhydramine 25 mg at bedtime or Loratadine 10mg daily. Coding Level of Care Code Est Pt Level 3 (94964) Diagnoses Pharyngitis, unspecified etiology J02.9 Pharyngitis/tonsillitis etiology: unspecified etiology Time Spent (min) 20
== END 2024-08-10 15:24 | disposition home or self-care (01) ==
PROVIDERS: PCP Physician Assistant Medical; Visit Provider Physician Assistant
DX: J02.9 Acute pharyngitis, unspecified (principal)

== ENCOUNTER → 2024-08-10 14:28 | Outpatient (BNVA) | payer OTHER, SELFPAY | PROVIDERS: PCP Physician Assistant Medical; Visit Provider Physician Assistant | DX: J02.9 Acute pharyngitis, unspecified (principal) | CPT/HCPCS: 87880; 99212 ==

== ENCOUNTER 2024-09-18 09:09 | Outpatient (AMB) | payer OTHER, SELFPAY ==
--- NOTE | 2024-09-18 09:14 | A.OFFPC_ITS ---
Vital Signs 09/18/24 09:17 Height 5 ft 6 in Weight 250 lb BMI 40.3 BP 116/66 Blood Pressure Location Rt brachial Position Sitting Pulse 74 Pulse Source Pulse Oximeter Temp 98.2 F Temp Source Temporal Artery Scan Pulse Oximetry (%) 96 Oxygen Delivery Method Room Air Intake Visit Reasons: Meds Review RE Intake Note: Yaz presents in the office today for a medication check in. Allergies bee pollen (bee stings) Allergy (Verified 09/18/24 09:16) Hives fish derived (fish) Allergy (Verified 09/18/24 09:16) Shortness of Breath Tobacco use date assessed: 09/18/24 Dental Screening Dental Screen Date: 09/18/24 Did you have a dental visit in the last 12 months?: No Did you have a dental problem in the last 6 months where you did not have access to dental care?: No Was dental information given to patient?: Patient declined HPI HPI Comments History of Present Illness Details 23-year-old female with a past medical h istory of impaired fasting glucose, obesity, dyslipidemia and eczema presents for follow up. She is compliant with tirzepatide. She has lost 22 lb. Her BMI is 40.3. The patient says she actually gained back about 10 lb because she stopped the medication for 2 weeks to see if it was making a difference. She reports no side effects except for possible link between the medication and hair thinning and sometimes has itching only around the injection site after administration. She has fine hair at baseline. No scalp rashes or itching. We discussed local injection site reaction and management with application of cool compress and OTC cortisone cream. If the itching spreads or she has hives she is to discontinue the medication and let us know. Patient's liver enzymes were initially elevated. They were repeated on March 24 and still mildly elevated but improved. She is following a healthier diet. Ultrasound with elastography demonstrated hepatic steatosis and ruled out advanced liver disease. She drinks alcohol rarely. Testing for hepatitis-A, B and C was negative. Prediabetes-her last hemoglobin A1c was 5.7%. She brings up a concern today about a possible celiac sensitivity or allergy. She feels that when she ingests foods such as bread she gets very bloated. Denies family history of this. Denies unexplained weight loss, abdominal pain, diarrhea, blood in stools, vomiting. She also has seasonal allergies that causes conjunctivitis, and she uses [id number] eyedrops. She would like to have allergy testing done. Her depression screening is positive. She sees a therapist once a week. She says it is just normal things in life that come up that can cause depression symptoms, and she does not need additional treatment other than therapy right now. ROS: Constitutional: No unexplained weight loss, fever, chills or night sweats. Respiratory: No shortness of breath Gastrointestinal: No anorexia, nausea, vomiting or diarrhea. No abdominal pain or blood in stool. Neurologic: No headache, dizziness, syncope Skin: See HPI Physical exam: Constitutional: Alert, in no distress. Neck: Supple, Full range of motion. No lymphadenopathy. No palpable thyroid masses or enlargement. Respiratory: Clear to auscultation. Cardiovascular: S1 S2 regular. No murmurs. Gastrointestinal: Abdomen soft, non-tender, non-distended. Normal bowel sounds. No palpable masses.. Extremities: Warm and well perfused. No clubbing, cyanosis or edema. Psychiatric: Normal mood and affect [facility] Medical History (Updated 09/18/24 @ 09:56 by ADELSO Renee) Depression Seasonal allergies Adverse food reaction Hair thinning Hepatic steatosis Prediabetes Obesity, class 3 Routine physical examination Dyslipidemia IFG (impaired fasting glucose) Elevated LFTs Eczema History of multiple miscarriages Heart murmur No known health problems Family History Mother Alcoholism Father Alcoholism Other FH: mental illness Substance abuse Social History (Updated 09/18/24 @ 09:17 by Nika Horn MA) Housing: Apartment Alcohol intake: current Patient Tobacco Use Status: Never used Tobacco e-Cigarette/Vaping Use: Never Used Second Hand Smoke Exposure: Yes service: No Current occupational status: employed 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 1. Little interest or pleasure in doing things: several days 2. Feeling down, depressed, or hopeless: several days 3. Trouble falling or staying asleep, or sleeping too much: several days 4. Feeling tired or having little energy: several days 5. Poor appetite or overeating: more than half the days 6. Feeling bad about yourself - or that you are a failure or have let yourself or your family down: several days 7. Trouble concentrating on things, such as reading the newspaper or watching television: not at all 8. Moving or speaking so slowly that other people could have noticed. Or the opposite - being so fidgety or restless that you have been moving around a lot more than usual: not at all 9. Thoughts that you would be better off or of hurting yourself in some way: not at all Total score: 7 Depression Screening Interpretation: Positive Depression Screening Follow-up: Existing condition and In treatment Depression Screening Done: Yes Source: Developed by Drs. Saúl Bates, Oliva Bosch, Vance Broderick and colleagues, with an educational christopher from [employer]. Thrive Questionnaire Date Thrive assessed: 09/11/24 I am a: Patient What is your living situation today?: I choose not to answer this question Within the past 12 months, did the food you bought not last and you didn't have the money to get more?: Sometimes True Within the past 12 months, did you worry whether your food would run out before you got money to buy more?: Sometimes True Do you have trouble paying for medicines?: Yes Do you have trouble getting transportation to medical appointments?: No Do you have trouble paying your heating and electricity bill?: No Do you have trouble taking care of your child, family member or friend?: No Do you have trouble with day-to-day activities such as bathing, preparing meals, shopping, managing finances, etc.?: Yes Are you currently unemployed and looking for a job?: No Are you interested in more education?: Yes Please select the resources that you would like help with: Housing/Correction, Food, Utilities and Education Currently or been in a relationship where the following occur: No concerns reported THRIVE Score: 2 AUDIT C Alcohol Use Questionnaire (AUDIT-C) 1. How often do you have a drink containing alcohol?: 2-4 times a month Total Score: 2 ABELARDO-7 AMB Questionnaire ABELARDO-7 Feeling nervous, anxious, or on edge: 1 = Several days Not being able to stop or control worryin = Several days Worrying too much about different things: 1 = Several days Trouble relaxin = Several days Being so restless that it is hard to sit still: 1 = Several days Becoming easily annoyed or irritable: 1 = Several days Feeling afraid as if something awful might happen: 1 = Several days Total ABELARDO-7 score (0-4 normal; 5-9 mild; 10-14 moderate; 15-21 severe): 7 Source: Developed by Drs. Saúl Bates, Oliva Bosch, Vance Broderick and colleagues, with an educational christopher from [employer]. Physical exam (Primary Care) Vital Signs: Last Vital Signs Temp 98.2 F 09/18/24 09:17 Pulse 74 09/18/24 09:17 BP 116/66 09/18/24 09:17 Pulse Ox 96 09/18/24 09:17 Oxygen Delivery Method Room Air 09/18/24 09:17 BMI result Body Mass Index 40.3 Tobacco/Smoking Status: Tobacco use Status Tobacco use date assessed 09/18/24 09/18/24 09:20 Patient Tobacco Use Status Never used Tobacco 09/18/24 09:17 e-Cigarette/Vaping Use Never Used 09/18/24 09:17 PHQ-9: PHQ-9 Score PHQ-9: Total score 7 09/18/24 09:14 Depression Screening Interpretation: Positive Depression Screening Follow-up: Existing condition and In treatment Thrive Assessment: Date of Thrive Assessment Date Thrive assessed 09/11/24 09/18/24 09:14 Currently or been in a relationship where the following occur: No concerns reported Coding Level of Care Code Est Pt Level 4 (24875) Complex EM visit Add On G2211 Diagnoses Hair thinning L65.9 Adverse food reaction T78.1XXA Prediabetes R73.03 Obesity, class 3 E66.813 Seasonal allergies J30.2 Depression F32.A Assessment & Plan Assessment & Plan (1) Hair thinning: Code(s): L65.9 - Nonscarring hair loss, unspecified Category: Medical Plan: We discussed this can be associated with weight loss, GLP 1 and vitamin deficiencies and hypothyroidism. She will return for labs next week. If labs are nondiagnostic she would like a dermatology consult. (2) Adverse food reaction: Code(s): T78.1XXA - Other adverse food reactions, not elsewhere classified, initial encounter Category: Medical Plan: We discussed the role of blood test for celiac disease. She will have the lab work done. If this is positive I will refer her to Gastroenterology. If this is negative she can try a 1 month gluten free diet to see if her symptoms resolve. We discussed she could have celiac disease even if labs are negative. Endoscopy/colonoscopy with biopsy is the gold standard for diagnosis. (3) Prediabetes: Code(s): R73.03 - Prediabetes Category: Medical Plan: Continue avoidance of carbohydrate rich foods and follow a diet low in sugars. Continue regular exercise and efforts at weight loss. (4) Obesity, class 3: Code(s): E66.813 - Obesity, class 3 Category: Medical Plan: She continues lifestyle modifications including exercise and a healthy diet. She would like to try increasing Zepbound to 12.5 mg weekly. If she does not tolerate it we will decrease back to 10 mg. (5) Seasonal allergies: Code(s): J30.2 - Other seasonal allergic rhinitis Category: Medical Plan: Refer to Allergy and immunology. (6) Depression: Code(s): F32.A - Depression, unspecified Category: Medical Plan: Patient says she is stable and sees a therapist weekly. She declines further interventions right now. Plan Follow up in 6 months for a physical exam. Orders: Orders Vitamin B12 and Folate Today D64.9 - Anemia, unspecified, L65.9 - Nonscarring hair loss, unspecified, T78.1XXA - Other adverse food reactions, not elsewhere classified, initial encounter Vitamin D 25-OH (D2 and D3) Today L65.9 - Nonscarring hair loss, unspecified, M85.80 - Other specified disorders of bone density and structure, unspecified site, T78.1XXA - Other adverse food reactions, not elsewhere classified, initial encounter TSH reflex Free T4 Today L65.9 - Nonscarring hair loss, unspecified, T78.1XXA - Other adverse food reactions, not elsewhere classified, initial encounter Zinc Today L65.9 - Nonscarring hair loss, unspecified, T78.1XXA - Other adverse food reactions, not elsewhere classified, initial encounter Other Ref Test - Misc Today L65.9 - Nonscarring hair loss, unspecified, T78.1XXA - Other adverse food reactions, not elsewhere classified, initial encounter Complete Blood Count no Diff Today L65.9 - Nonscarring hair loss, unspecified, T78.1XXA - Other adverse food reactions, not elsewhere classified, initial encounter Celiac Disease Panel Today L65.9 - Nonscarring hair loss, unspecified, T78.1XXA - Other adverse food reactions, not elsewhere classified, initial encounter Hemoglobin A1c Today R73.03 - Prediabetes Referrals Allergy & Immunology Referral J30.2 - Other seasonal allergic rhinitis Medications: New tirzepatide (weight loss) (Zepbound) 12.5 mg (0.5 mL) subcut QWEEK 2 mL 0RF Discontinued tirzepatide (weight loss) (Zepbound) Discontinued Reason: Doctor's Order 10 mg (0.5 mL) subcut QWEEK 2 mL 3RF
[2024-09-18 09:17] VITALS: BP 116/66; PULSE 74; TEMP 36.8; O2SAT 96; BMI 40.3
== END 2024-09-18 09:42 | disposition home or self-care (01) ==
LOC: HO.HMCFM 09:10
PROVIDERS: PCP Physician Assistant Medical; Visit Provider Physician Assistant Medical
DX: L65.9 Nonscarring hair loss, unspecified (principal); T78.1XXA Other adverse food reactions, not elsewhere classified, initial encounter; E66.813 Obesity, class 3; Z68.41 Body mass index [BMI] 40.0-44.9, adult; R73.03 Prediabetes; J30.2 Other seasonal allergic rhinitis; F32.A Depression, unspecified

== ENCOUNTER → 2024-09-18 09:09 | Outpatient (BNVA) | payer OTHER, SELFPAY | PROVIDERS: PCP Physician Assistant Medical; Visit Provider Physician Assistant Medical | DX: L65.9 Nonscarring hair loss, unspecified (principal); T78.1XXA Other adverse food reactions, not elsewhere classified, initial encounter; R73.03 Prediabetes; E66.813 Obesity, class 3; Z68.41 Body mass index [BMI] 40.0-44.9, adult; J30.2 Other seasonal allergic rhinitis; F32.A Depression, unspecified; Z13.30 Encounter for screening examination for mental health and behavioral disorders, unspecified | CPT/HCPCS: 99212 ==